=== PATIENT | male | born 1965 | race Caucasian/White ===

== ENCOUNTER 2017-05-10 09:35 | Day surgery (SDC) | payer BC ==
[~2017-05-10] VITALS: Ht 182.9 cm; Wt 75.0 kg
[~2017-05-10 09:35] MED LIST: ALBU90OI6; BUDE6HFA; LEVSOD75
== END 2017-05-10 12:34 | disposition home or self-care (01) ==
LOC: ORSCSDS 09:35
PROVIDERS: Internal Medicine Gastroenterology
PROC: 0DBB8ZX Excision of Ileum, Via Natural or Artificial Opening Endoscopic, Diagnostic (ICD-10-PCS; principal; 2017-05-10 11:15)
PROC: 0DBP8ZX Excision of Rectum, Via Natural or Artificial Opening Endoscopic, Diagnostic (ICD-10-PCS; principal; 2017-05-10 11:15)
DX: K92.1 Melena (principal); K52.9 Noninfective gastroenteritis and colitis, unspecified; K57.30 Diverticulosis of large intestine without perforation or abscess without bleeding; K64.8 Other hemorrhoids; E03.9 Hypothyroidism, unspecified; J45.909 Unspecified asthma, uncomplicated; Z79.899 Other long term (current) drug therapy
CPT/HCPCS: 88305; J7120

== ENCOUNTER → 2018-01-29 | Outpatient (CLI) | payer BC ==
[2018-01-29 17:46] LABS: BASOPHILS ABSOLUTE AUTO 0.07 K/mm3 (0.00-0.23); BASOPHILS PERCENT AUTO 1 % (0-2); EOSINOPHILS ABSOLUTE AUTO 0.24 K/mm3 (0.00-0.68); EOSINOPHILS PERCENT AUTO 4 % (0-6); Hematocrit 46.8 % (37.0-53.0); Hemoglobin 16.2 g/dL (13.5-17.5); IMMATURE GRAN ABSOLUTE AUTO 0.02 K/mm3 (0.00-0.10); IMMATURE GRAN PERCENT AUTO 0 % (0-1); LYMPHOCYTES PERCENT AUTO 35 % (21-46); MONOCYTES ABSOLUTE AUTO 0.57 K/mm3 (0.16-1.47); MONOCYTES PERCENT AUTO 9 % (4-13); Mean Corpuscular HGB 28.4 pg (26.0-34.0); Mean Corpuscular HGB Conc 34.6 g/dL (31.5-36.5); Mean Corpuscular Volume 82 fL (80-100); Mean Platelet Volume 10.7 fL (9.1-12.4); NEUTROPHILS ABSOLUTE AUTO 3.45 K/mm3 (1.96-9.15); NEUTROPHILS PERCENT AUTO 52 % (41-73); Platelet Count 234 K/mm3 (150-400); RDW Coefficient Variation 13.2 % (11.7-14.2); RDW Standard Deviation 38.6 fL (35.1-46.3); White Blood Cell Count 6.65 K/mm3 (4.00-11.30)
[2018-01-29 17:58] LABS: Anion Gap 10 mmol/L (6-16); Blood Urea Nitrogen 26 mg/dL (8-24); Bun/Creatinine Ratio 22.6 (12.0-20.0); CO2, Blood 24 mmol/L (21-32); Calcium, Blood 9.4 mg/dL (8.5-10.1); Chloride, Blood 104 mmol/L (98-108); Creatinine, Blood 1.15 mg/dL (0.60-1.20); Glomerular Filtration Rate >60 (60-); Glucose, Blood 95 mg/dL (70-99); Potassium, Blood 3.9 mmol/L (3.5-5.5); Sodium, Blood 138 mmol/L (136-145)
[2018-01-29 17:59] LABS: Troponin I <0.017 ng/mL (0.000-0.040)
== END | disposition home or self-care (01) ==
LOC: LAB EV 17:40 → LAB SHORT 17:40
PROVIDERS: Family Medicine
DX: R07.9 Chest pain, unspecified (principal)
CPT/HCPCS: 80048; 84484; 85025; 85379

== ENCOUNTER 2020-08-18 06:00 | Day surgery (SDC) | payer BC ==
[~2020-08-18] VITALS: Ht 182.9 cm; Wt 81.8 kg
[~2020-08-18 06:00] MED LIST changes: -ALBU90OI6; +ALBU90OI6 INH; -BUDE6HFA; +SYMBICORT 160-4.6 GM INH
--- NOTE | 2020-08-18 06:58 | NUR ---
Ambulatory in Day Surgery History, Chart, Medications and Allergies reviewed before start of procedure.Lungs clear T/O to Auscultation. Patient confirms NPO status and agrees with scheduled surgery. Pre-Op teaching done. Pt verbalizes understanding.
[2020-08-18] MEDS ORDERED: OXYC5 PO (15:51)
[2020-08-18] MEDS ORDERED: ASPI81CH PO (15:51)
--- NOTE | 2020-08-18 18:20 | NUR ---
DISCHARGE SUMMARY PT POD [address] T[address] KNEE WITH DR ADHIKARI. TOLERATED REGULAR DIET AND LIQUIDS. MEDICATED FOR PAIN PER EMAR. VOIDED WELL. CLEARED BY PHYSICAL THERAPY TO GO HOME. OBTAINED DISCHARGE ORDERS. DISCHARGE EDUCATION GIVEN ON RX, WOUND CARE, ACTIVITY, AND FOLLOW UP APPTS. IV DC'D WNL. PT LEFT UNIT VIA WHEELCHAIR FOR HOME WITH SPOUSE AT 1630.
--- NOTE | 2020-08-19 10:02 | NUR ---
08/19/20 1002 Katia Zarate VERIFICATIONS: EDIT CHART.
[2020-12-01] MEDS ORDERED: MIRALAX17 GM PO (21:17)
[2020-12-01] MEDS ORDERED: 1/2 NS 250ml250 ML (21:17)
[2020-12-01] MEDS ORDERED: PROBIOTIC PO (21:19)
[2020-12-01] MEDS ORDERED: IBUP600 PO (21:20)
[2020-12-01] MEDS ORDERED: CIPR500 PO (22:03)
[2020-12-01] MEDS ORDERED: Percocet 7.5-31 EACH PO (22:03)
[2020-12-01] MEDS ORDERED: PROM25 PO (22:03)
== END 2020-08-18 17:54 | disposition home or self-care (01) ==
LOC: ORSCMMR 06:00 → ORD 07:30 → ORSCMMR 07:30 → SURS 10:30 → ORSCMMR 17:54 → ORD 10-13 07:30
PROVIDERS: Orthopaedic Surgery
PROC: 0SRC0JA Replacement of Right Knee Joint with Synthetic Substitute, Uncemented, Open Approach (ICD-10-PCS; principal; 2020-08-18 07:30)
PROC: 8E0Y0CZ Robotic Assisted Procedure of Lower Extremity, Open Approach (ICD-10-PCS; principal; 2020-08-18 07:30)
DX: M17.11 Unilateral primary osteoarthritis, right knee (principal); G47.33 Obstructive sleep apnea (adult) (pediatric); K21.9 Gastro-esophageal reflux disease without esophagitis; J45.909 Unspecified asthma, uncomplicated
CPT/HCPCS: 27447; S2900; 73560-RT; 97110; 97116; 97161; 97530; A9270; C1776; J0171; J0690; J0735; J1100; J1885; J2250; J2370; J2405; J2704; J2795; J3010; J7120

== ENCOUNTER 2020-12-01 19:51 | Emergency (ER) | payer BC | END 2020-12-01 22:35 | disposition home or self-care (01) | LOC: ER 19:51 | DX: N12 Tubulo-interstitial nephritis, not specified as acute or chronic (principal); Z88.0 Allergy status to penicillin; Z88.5 Allergy status to narcotic agent; Z79.82 Long term (current) use of aspirin ==

== ENCOUNTER 2020-12-16 07:20 | Day surgery (SDC) | payer BC ==
[~2020-12-16] VITALS: Ht 182.9 cm; Wt 75.6 kg
[~2020-12-16 07:20] MED LIST changes: +1/2 NS 250ml250 ML; +ASPI81CH PO; +CIPR500 PO; +CIPRO500 M1 PO; +IBUP600 PO; +MIRALAX17 GM PO; +OXYC5 PO; +PROBIOTIC PO; +PROM25 PO; +Percocet 7.5-31 EACH PO
--- NOTE | 2020-12-16 08:06 | NUR ---
[facility] ADMISSION STARTED. Ambulatory in Day Surgery. History, Chart, Medications and Allergies reviewed before start of procedure. Patient confirms NPO status and agrees with scheduled surgery. Patient States Post-Procedure ride home has been arranged.
--- NOTE | 2020-12-16 10:26 | NUR ---
12/16/20 1026 Michele Salmeron NO ANTIBIOTICS NEEDED PER DR SIMENTAL
--- NOTE | 2020-12-16 11:55 | NUR ---
PT HAS STRONG URGE TO URINATE, UNABLE TO URINATE. TRIED HEAT PACKS, BLADDER SCAN REVEALED 273 ML. PLACED WARM BLANKET OVER GROIN, WILL TRY AGAIN SOON.
--- NOTE | 2020-12-16 12:02 | NUR ---
PT UP TO BATHROOM
--- NOTE | 2020-12-16 12:11 | NUR ---
PT STILL UNABLE TO URINATE
--- NOTE | 2020-12-16 12:30 | NUR ---
RECIEVED PATIENT AND ASSUMED CARE OF PATIENT. AT BEDSIDE TO TALK WITH PATIENT ABOUT URINATING
--- NOTE | 2020-12-16 12:47 | NUR ---
IV OUT PATIENT IN BATHROOM TO DRESS AND ATTEMPT TO USE BATHROOM
--- NOTE | 2020-12-16 12:59 | NUR ---
Discharge instructions reviewed with patient. Patient verbalizes understanding. Copy given to patient to take home. Patient States Post-Procedure ride home has been arranged. Discharged via wheelchair to private car for ride home.
== END 2020-12-16 23:14 | disposition home or self-care (01) ==
LOC: ORSCMMR 07:20 → ORD 09:00 → ORSCMMR 09:00
PROVIDERS: Surgery
PROC: 06BY0ZC Excision of Hemorrhoidal Plexus, Open Approach (ICD-10-PCS; principal; 2020-12-16 09:00)
DX: K64.3 Fourth degree hemorrhoids (principal); E03.9 Hypothyroidism, unspecified; G47.33 Obstructive sleep apnea (adult) (pediatric); J45.909 Unspecified asthma, uncomplicated
CPT/HCPCS: 88304; J0171; J1100; J2250; J2370; J2405; J2704; J3010; J7120

== ENCOUNTER 2021-01-08 14:07 | Emergency (ER) | payer BC ==
[~2021-01-08] VITALS: Ht 182.9 cm; Wt 80.7 kg
[2021-01-08 14:32] LABS: BASOPHILS ABSOLUTE AUTO 0.07 K/mm3 (0.00-0.23); BASOPHILS PERCENT AUTO 1 % (0-2); EOSINOPHILS ABSOLUTE AUTO 0.38 K/mm3 (0.00-0.68); EOSINOPHILS PERCENT AUTO 5 % (0-6); Hematocrit 48.8 % (37.0-53.0); Hemoglobin 16.7 g/dL (13.5-17.5); IMMATURE GRAN ABSOLUTE AUTO 0.03 K/mm3 (0.00-0.10); IMMATURE GRAN PERCENT AUTO 0 % (0-1); LYMPHOCYTES ABSOLUTE AUTO 2.37 K/mm3 (0.84-5.20); LYMPHOCYTES PERCENT AUTO 32 % (21-46); MONOCYTES ABSOLUTE AUTO 0.57 K/mm3 (0.16-1.47); MONOCYTES PERCENT AUTO 8 % (4-13); Mean Corpuscular HGB 27.5 pg (26.0-34.0); Mean Corpuscular HGB Conc 34.2 g/dL (31.5-36.5); Mean Corpuscular Volume 80 fL (80-100); Mean Platelet Volume 10.6 fL (9.1-12.4); NEUTROPHILS ABSOLUTE AUTO 4.11 K/mm3 (1.96-9.15); NEUTROPHILS PERCENT AUTO 55 % (41-73); Platelet Count 191 K/mm3 (150-400); RDW Coefficient Variation 13.2 % (11.7-14.2); RDW Standard Deviation 38.3 fL (35.1-46.3); Red Blood Cell Count 6.08 M/mm3 (4.30-5.90); White Blood Cell Count 7.53 K/mm3 (4.00-11.30)
[2021-01-08 14:59] LABS: Alanine Aminotransfer (ALT/SGP 120 U/L (12-78); Albumin, Blood 3.8 g/dL (3.4-5.0); Alk Phos 114 U/L (50-136); Anion Gap 7 mmol/L (6-16); Aspartate Aminotrans (AST/SGOT 49 U/L (12-37); Bilirubin, Total 0.7 mg/dL (0.1-1.0); Blood Urea Nitrogen 18 mg/dL (8-24); Bun/Creatinine Ratio 17.1 (12.0-20.0); CO2, Blood 24 mmol/L (21-32); Calcium, Blood 8.6 mg/dL (8.5-10.1); Chloride, Blood 109 mmol/L (98-108); Creatinine, Blood 1.05 mg/dL (0.60-1.20); Globulin, Blood 3.8 g/dL (2.2-4.0); Glomerular Filtration Rate >60 (60-); Glucose, Blood 85 mg/dL (70-99); Sodium, Blood 140 mmol/L (136-145); Total Protein, Blood 7.6 g/dL (6.4-8.2); Troponin I <0.015 ng/mL (0.000-0.040)
[2021-01-08 15:25] LABS: SARS-Cov-2 (COVID-19) PCR, MMC NEGATIVE (NEGATIVE)
== END 2021-01-08 16:00 | disposition home or self-care (01) ==
LOC: ER 14:07
PROVIDERS: Physician Assistant
DX: R07.89 Other chest pain (principal); B34.9 Viral infection, unspecified; Z20.822 Contact with and (suspected) exposure to COVID-19; Z79.82 Long term (current) use of aspirin; Z79.899 Other long term (current) drug therapy; Z88.0 Allergy status to penicillin; Z88.2 Allergy status to sulfonamides; Z88.6 Allergy status to analgesic agent; Z88.8 Allergy status to other drugs, medicaments and biological substances; Z88.5 Allergy status to narcotic agent
CPT/HCPCS: 36415; 71045; 80053; 84484; 85025; 93005; 93010; 99285-25; U0004

== ENCOUNTER 2022-06-03 05:55 | Day surgery (SDC) | payer BC ==
[~2022-06-03] VITALS: Ht 182.9 cm; Wt 89.5 kg
[~2022-06-03 05:55] MED LIST changes: +ALBU90OI; +FAMO20; +MULVITA PO; +TIOT18 INH; +VITAMIN D310 MC5 PO
--- NOTE | 2022-06-03 08:01 | NUR ---
Upon receiving a request for spiritual care, I visit the patient. He immediately reminds me of the rolled gold plater services I provided for the patient's mother in her illness and at her in the hospital. He asks for a presurgery prayer to be offered. I gladly provide a calming presence and prayer. Patient responds well and shows signs of an increase in peace.
--- NOTE | 2022-06-03 09:58 | NUR ---
SPOKE WITH DR SIMENTAL REGARDING POST OP ORDER FOR NORCO AND PT ALLERGY TO HYDROCODE, DR SIMENTAL STATED HE VERIFIED WITH PT IN ADVANCE THAT HE WAS OK TO TAKE NORCO, AND IT WAS OK TO PROCEED WITH MEDICATION
--- NOTE | 2022-06-03 11:50 | NUR ---
PT RECEIVED 2 PAIN PILLS. VSS BUT PT GETS DIZZY WHEN LOOKING DOWN TO THE POINT OF POSSIBLY FALLING. INCISIONS REMAIN CDI X3 ABD BINDER PLACED WITH SOME PAIN RELIEF. PT ABLE TO CDB AND FOLLOW COMMANDS. EFRAÍN PO WITHOUT DIFFICULTY. WILL CONT TO MONITOR TILL FEELS READY TO GO HOME AND RISK OF FALL IS GONE. ALL BELONINGS RETURNED TO PATIENT. PT SLEEPING AT THIS TIME. SCRIPT GIVEN TO .
--- NOTE | 2022-06-03 12:07 | NUR ---
Patient up to Ambulate independently. Gait steady. Discharge instructions reviewed with patient. Patient verbalizes understanding. Copy given to patient to take home. Dressing to procedure site clean, dry, intact with no visible drainage, swelling, erythema or bruising noted. Patient States Post-Procedure ride home has been arranged. Patient reports completing Chlorhexadine shower X2 prior to admission to hospital. ABD BINDER IN PLACE. NO SIGN OF ALLERGIC REACTION TO 2 PAIN PILLS GIVEN.
== END 2022-06-03 23:51 | disposition home or self-care (01) ==
LOC: ORSCMMR 05:55 → ORD 07:30 → ORSCMMR 23:51
PROVIDERS: Surgery
PROC: 0YU60JZ Supplement Left Inguinal Region with Synthetic Substitute, Open Approach (ICD-10-PCS; principal; 2022-06-03 07:30)
PROC: 8E0W0CZ Robotic Assisted Procedure of Trunk Region, Open Approach (ICD-10-PCS; principal; 2022-06-03 07:30)
PROC: 3E0M05Z Introduction of Adhesion Barrier into Peritoneal Cavity, Open Approach (ICD-10-PCS; principal; 2022-06-03 07:30)
DX: K40.90 Unilateral inguinal hernia, without obstruction or gangrene, not specified as recurrent (principal); J45.909 Unspecified asthma, uncomplicated; J44.9 Chronic obstructive pulmonary disease, unspecified; G47.33 Obstructive sleep apnea (adult) (pediatric); E03.9 Hypothyroidism, unspecified; Z79.899 Other long term (current) drug therapy
CPT/HCPCS: 49650; S2900; A9270; C1781; J0690; J1100; J2250; J2370; J2405; J2704; J2795; J3010; J7120

== ENCOUNTER → 2022-06-14 | Outpatient (CLI) | payer BC | LOC: LAB 07:57 → LAB SHORT 07:57 | DX: L50.9 Urticaria, unspecified (principal) | CPT/HCPCS: 87070; 87205 ==

== ENCOUNTER → 2023-12-08 | Outpatient (CLI) | payer BC | END | disposition home or self-care (01) | LOC: LAB SHORT 07:46 → LAB 07:46 | DX: E11.65 Type 2 diabetes mellitus with hyperglycemia (principal) | CPT/HCPCS: 36415; 83036 ==